=== PATIENT | male | born 1960 | race Caucasian/White ===

== ENCOUNTER → 2016-10-04 | Outpatient (CLI) | payer OTHER ==
[~2016-10-04] MED LIST: AUGMENTIN 875-1 EACH PO; CLINDAMYCIN HC300 MG PO; NORCO 10-325 T1 EACH PO; OXYCODONE-ACET1 EACH PO
== END ==
LOC: KOH-I 10:13
DX: M54.5 Low back pain (principal); M54.2 Cervicalgia; M25.519 Pain in unspecified shoulder; M25.551 Pain in right hip; M19.011 Primary osteoarthritis, right shoulder; M19.012 Primary osteoarthritis, left shoulder; M51.36 Other intervertebral disc degeneration, lumbar region; M12.9 Arthropathy, unspecified
CPT/HCPCS: 72050; 72070; 72110; 73030; 73502